=== PATIENT | male | born 1975 | race Caucasian/White ===

== ENCOUNTER 2024-11-20 02:44 | Emergency (ER) | payer MEDICAID ==
[~2024-11-20] VITALS: Ht 165.1 cm; Wt 108.0 kg
[2024-11-20 02:50] VITALS: O2SAT 100
[2024-11-20] MEDS: LIDOCAINE HCL/EPINEPHRINE 1%-EPI 1:100,000 20ML VIAL INFIL ONE (04:45)
[2024-11-20 05:50] VITALS: BP 137/92; PULSE 96; RESP 18; TEMP 36.8; O2SAT 100
[2024-11-20] MEDS ORDERED: CEPH500C2 MT (21:03)
[2024-11-20] MEDS ORDERED: NEOM28.43 TP (21:04)
== END 2024-11-20 05:51 | disposition home or self-care (01) ==
LOC: ER 02:44
DX: R51.9 Headache, unspecified (principal); E11.9 Type 2 diabetes mellitus without complications; I10 Essential (primary) hypertension; Z79.82 Long term (current) use of aspirin; Z90.49 Acquired absence of other specified parts of digestive tract
CPT/HCPCS: 99282; J2004; Z7610 ×2

== ENCOUNTER 2024-11-20 20:01 | Emergency (ER) | payer MEDICAID ==
[~2024-11-20] VITALS: Ht 165.1 cm; Wt 109.0 kg
[2024-11-20 20:08] VITALS: O2SAT 99
[2024-11-20] MEDS: LIDOCAINE HCL/EPINEPHRINE 1%-EPI 1:100,000 20ML VIAL INFIL ONE (20:29)
[2024-11-20] MEDS ORDERED: CEPH500C2 MT (21:03)
[2024-11-20] MEDS ORDERED: NEOM28.43 TP (21:04)
[2024-11-20 21:14] VITALS: BP 138/90; PULSE 98; RESP 18; TEMP 36.9; O2SAT 97
== END 2024-11-20 21:18 | disposition home or self-care (01) ==
LOC: ER 20:01
DX: S01.01XA Laceration without foreign body of scalp, initial encounter (principal); E11.9 Type 2 diabetes mellitus without complications; I10 Essential (primary) hypertension; Z90.49 Acquired absence of other specified parts of digestive tract; W26.0XXA Contact with knife, initial encounter; Y93.89 Activity, other specified; Y92.89 Other specified places as the place of occurrence of the external cause; Y99.8 Other external cause status
CPT/HCPCS: 12002; 99283; J2004; A6449; Z7610

== ENCOUNTER 2024-12-02 12:07 | Emergency (ER) | payer MEDICAID ==
[~2024-12-02] VITALS: Ht 162.6 cm; Wt 109.0 kg
[~2024-12-02 12:07] MED LIST: CEPH500C2 MT; NEOM28.43 TP
[2024-12-02 12:09] VITALS: O2SAT 98
[2024-12-02] MEDS ORDERED: BO1 TP (12:47)
[2024-12-02 12:55] VITALS: BP 130/88; PULSE 80; RESP 18; TEMP 36.8; O2SAT 98
== END 2024-12-02 12:56 | disposition home or self-care (01) ==
LOC: ER 12:07
DX: S01.01XD Laceration without foreign body of scalp, subsequent encounter (principal); E11.9 Type 2 diabetes mellitus without complications; I10 Essential (primary) hypertension; Z90.49 Acquired absence of other specified parts of digestive tract; Z79.899 Other long term (current) drug therapy; X58.XXXD Exposure to other specified factors, subsequent encounter
CPT/HCPCS: 99282; Z7610 ×2